=== PATIENT | male | born 1990 | race African-American/Black ===

== ENCOUNTER 2019-04-01 08:02 | Emergency (ER) | payer BC, SELFPAY ==
[2019-04-01 08:20] VITALS: BP 114/75; PULSE 70; RESP 16; TEMP 36.5; O2SAT 100
--- NOTE | 2019-04-01 08:24 | ED.NAVMDI ---
HPI - Nausea/Vomiting/Diarrhea General Chief complaint: Nausea/Vomiting/Diarrhea Stated complaint: Vomiting/Body Aches Time Seen by Provider: 04/01/19 08:26 Source: patient Mode of arrival: ambulatory History of Present Illness HPI Narrative: Patient presents with nausea vomiting and diarrhea that started 1 day ago. Patient reports generalized abdominal pain states he is able to tolerate liquids now. Patient denies any blood in his stools or emesis. Patient states he is a normally healthy individual. Patient also requests a note for work. MD elicited complaint: nausea, vomiting and diarrhea Related Data Home Medications Medication Instructions Recorded Confirmed hydrocodone-acetaminophen 1 tablet PO Q6H PRN 04/01/19 04/01/19 Allergies Allergy/AdvReac Type Severity Reaction Status Date / Time phenol Allergy Unknown Swelling Verified 04/01/19 08:29 tramadol Allergy Unknown Unknown Verified 04/01/19 08:29 Review of Systems Review of Systems: Narrative: CONSTITUTIONAL: Denies fever, chills, or sweats. EYES: Denies visual changes, redness, or discharge. ENT: Denies rhinorrhea, congestion, sore throat, or otalgia. CARDIOVASCULAR: Denies chest pain, palpitations, or edema. RESPIRATORY: Denies cough or dyspnea. GASTROINTESTINAL: Denies abdominal pain, nausea, vomiting, or diarrhea. GENITOURINARY: Denies dysuria or hematuria. SKIN: Denies rash or itching. MUSCULOSKELETAL: Denies back pain, joint pain, or myalgia. NEUROLOGIC: Denies headache, numbness, or weakness. PSYCHIATRIC: Denies anxiety or depression. All systems reviewed & are unremarkable except as noted in HPI and below Constitutional: Constitutional: Reports as per HPI PMFSH Comments At time of signature, agree with nursing past medical, surgical, social and family history. There is no relevant family history pertinent to the presenting complaint Exam Narrative: Exam Narrative: GENERAL: Well-appearing, well-nourished, and in no acute distress. HEAD: Normocephalic, atraumatic. EYES: PERRLA and EOMI. ENT: Nares clear, no rhinorrhea or epistaxis. Mucous membranes moist. NECK: Supple. CHEST: Clear to auscultation. No respiratory distress. HEART: Regular rate and rhythm. No murmur heard. Normal peripheral pulses. ABDOMEN: Soft, nontender, nondistended, normal active bowel sounds. EXTREMITIES: Normal range of motion. No edema. SKIN: Warm, dry, no rash. NEURO: No focal deficits. Alert and oriented x3. [place] Coma Scale Eye Opening: Spontaneous 4 [place] Coma Scale Motor: Obeys Commands 6 Kendrick Coma Scale Verbal: Oriented 5 [place] Coma Scale Total 15 Course Vital Signs Vital signs: Vital Signs Temperature 36.5 C 04/01/19 08:20 Pulse Rate 70 04/01/19 08:20 Respiratory Rate 16 04/01/19 08:20 Blood Pressure 114/75 04/01/19 08:20 Pulse Oximetry 100 04/01/19 08:20 Temperature 36.5 C 04/01/19 08:20 Pulse Rate 70 04/01/19 08:20 Respiratory Rate 16 04/01/19 08:20 Blood Pressure 114/75 04/01/19 08:20 Pulse Oximetry 100 04/01/19 08:20 MDM - Nausea/Vomiting/Diarrhea Differential Diagnosis Differential diagnosis: Likely gastroenteritis, clostridium difficile infection, drug-induced nausea and vomiting and dehydration Critical Care Time Critical Care Time Critical Care Time: No Discharge Plan Discharge Clinical Impression: Gastroenteritis Diarrhea Qualifiers: Diarrhea type: unspecified type Qualified Code(s): R19.7 - Diarrhea, unspecified Nausea & vomiting Qualifiers: Vomiting type: unspecified Vomiting Intractability: unspecified Qualified Code(s): R11.2 - Nausea with vomiting, unspecified Patient Disposition: Home, Self-Care Condition: Stable Instructions: Antibiotic Form Additional Instructions: Clear liquids for the next 8-10 hours, then advance to a bland diet as tolerated A bland diet can consist of--BRAT diet which is bananas, rice, applesauce, and toast Avoid fried, greasy, fatty, fried f
== END 2019-04-01 08:45 | disposition home or self-care (01) ==
PROVIDERS: Emergency Provider Nurse Practitioner Family
DX: K52.9 Noninfective gastroenteritis and colitis, unspecified (principal)
CPT/HCPCS: 99213; G0463

== ENCOUNTER 2024-03-30 16:38 | Emergency (ER) | payer BC, SELFPAY ==
--- NOTE | ~2024-03-30 | XR_ITS ---
EXAMINATION: XR chest 2V Exam Date/Time: 03/30/2024 17:15 [facility] HISTORY: cp Comparison: 03/12/2016. RESULT: Lines, tubes, and devices: None. Lungs and pleura: Clear. Cardiomediastinal silhouette: Stable. Other: No acute osseous or upper abdominal finding. IMPRESSION: No acute cardiopulmonary process. Reviewed, dictated and finalized at location [facility]
--- OUTSIDE RECORDS SUMMARY | 2024-03-30 16:42 | XMS_ITS | Referral Summary ---
Author Organization [facility] Address [address] [place] [address] Care Team Providers Care Horse Doctor Name Role Phone Ashwini Grace MD Primary Care Provide r Elmer Luna MD Unavailable [phone] Allergies Active Allergy Reactions Criticality Noted Date Comments Phenol-Glycerin Swelling Medium 05/13/2018 Medications HYDROcodone-acet aminophen (NORCO) 5-325 mg per tabletIndication s:Pain Take 1 tablet by mouth every 6 (six) hours as needed for pain 12 tablet 06/25/2018 Active azithromycin (ZITHROMAX) 250 mg tablet TK 2 TS PO QD FOR 1 DAY THEN TK 1 T PO D 07/16/2019 Active HYDROcodone-acet aminophen (NORCO) 5-325 mg per tablet Take 1 tablet by mouth every 6 (six) hours 08/13/2022 Active Active Problems Problem Noted Date Diagnosed Date 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 (08/30/2022 4:59 PM CDT): Longstanding, non tender , unchanged, without any evidence of hypogonadism Will check HCG, alpha fetoprotein and breast ultrasound Referral to plastic surgeon, Dr Peter Dentalgia 01/15/2018 Dental caries into pulp 01/15/2018 Immunizations Name Administration Dates Next Due Tdap 07/28/2019 Social History Tobacco Use Types Packs/Day Years Used Date Smoking Tobacco: Never Assessed Smokeless Tobacco: Never Alcohol Use Standard Drinks/Week Comments Not Currently 0 (1 standard drink = 0.6 oz pur e alcohol) AUDIT-C Answer Date Recorded Q1: How often do you have a drink containing alcohol? Never 08/30/2022 Q2: How many drinks containi ng alcohol do you have on a typical day when you are drinking? Patient does not drink Q3: How often do you have si x or more drinks on one occasion? 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 Gender Identity Not on file Sexual Orientation Not on file Last Filed Vital Signs Vital Sign Reading Time Taken Comments Blood Pressure 130/74 08/30/2022 2:49 PM CDT Pulse 80 08/30/2022 2:49 PM CDT Temperature 36.6 ??C (97.9 ??F) 12/04/2020 3:44 AM CD T Respiratory Rate 16 12/04/2020 6:19 AM CDT Oxygen Saturation 100% 12/04/2020 6:19 AM CDT Inhaled Oxygen Concentration - - Weight 101.4 kg (223 lb 9 oz) 08/30/2022 2:49 PM CDT Height 172.7 cm (5' 8 ) 08/30/2022 2:49 PM CDT Body Mass Index 33.99 08/30/2022 2:49 PM CDT Plan of Treatment Not on file Insurance [employer] OOS IDPA NCR ACCESS OOS NCR ACCESS OOS Care Teams Horse Doctor Relationship Specialty Start Date End Date Ashwini Grace MD [address] [place] [address] PCP - General Internal Medicine 12/04/20 Elmer Luna MD [address] [facility] [address] [place] [address] 12/04/20
--- OUTSIDE RECORDS SUMMARY | 2024-03-30 16:42 | XMS_ITS | Clinical Summary ---
Author Organization [facility] Address [address] [place] [id number] Care Team Providers Care Allergy And Immunology Specialist Name Role Phone Ashwini Grace MD Primary Care Provide r Elmer Luna MD Unavailable Allergies Active Allergy Reactions Criticality Noted Date [...] Name Administration Dates Next Due Tdap 07/28/2019 Surgical History Surgery Date Site/Laterality Comments WRIST SURGERY 05/26/2022 - 06/24/2022 Right Medical History Medical History Date Comments Lumbar back pain Family History Medical History Relation Name Comments Diabetes Father Hypertension Father No Known Problems Mother Relation Name Status Comments Father Alive Mother Alive Social History Tobacco Use Types Packs/Day Years [...] on file 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 Gender Identity Not on file Sexual Orientation Not on file Obstetrics History Last Filed Vital Signs Vital Sign Reading [...] 08/30/2022 2:49 PM CDT Plan of Treatment Health Maintenance Due Date Last Done Comments Depression Screening 1989 Hepatitis C Screening 1989 Varicella Vaccines (1 of 2 - 13+ 2-dose series) 2002 Hepatitis B Screening 04/30/2007 Regular Well Visit/Exam 18-64 04/30/2007 Covid-19 Vaccine ( - 2023-2 5 season) 2023 06/03/2020 Influenza Vaccine (#1) 2023 DTaP/Tdap/Td Vaccine (2 - Td or Tdap) 07/27/2029 07/28/2019 HPV Vaccines Aged Out No longer eligi ble based on patient's age to complete this topic Pneumococcal vaccine <65 Aged Out No longer eligible based on patient's age to complete this topic Insurance BLUE ACCESS OOS IDPA BLUE ACCESS OOS BLUE ACCESS OOS Care Teams Allergy And Immunology Specialist Relationship Specialty Start Date End Date Ashwini Grace MD [address] [place] [address] PCP - General Internal Medicine 12/04/20 Elmer Luna MD [address] [place] [address] 12/04/20
--- OUTSIDE RECORDS SUMMARY | 2024-03-30 16:42 | XMS_ITS | CONTINUITY OF CARE DOCUMENT ---
Author Name ana edureina Address Unknown Organization [facility] Address [address] [place] [address] Phone [phone] Care Team Providers Care Garnett Feeder Name Role Phone Nacho Brice MD Unavailable ELIZABETH LAUGHLIN MD Unavailable [phone] ELIZABETH LAUGHLIN MD Unavailable PROBLEMS Condition Status Date Provider Notes Cardiology examination active Nacho Brice MD ENCOUNTERS Date Type Provider Location Encounter Diag nosis - In-person encounter Office Visit Nacho Brice MD [place] [facility] Cardiology examination VITAL SIGNS Date Observation Value Provider Body Mass Index (Ratio) 26.70 kg/m2 Vince Brice MD blood pressure, cuff size regular Yaron Morillo blood pressure, diastolic 88 mm[Hg] Yaron Morillo blood pressure, systolic 128 mm[Hg] Jim Morillo oxygen saturation, oximetry 97 % Maty Morillo pulse rate 71 /min Maty Morillo weight E&M 146 [lb_av] Maty Morillo height E&M 62 [in_i] Maty Morillo respiratory rate E&M 12 /min Maty Morillo HISTORY OF MEDICATION USE Medication Status Instructions Dates Provider Indications Com ments atorvastatin tablet 5 active Take 5mg TID Maty Morillo lisinopril 5 mg tablet active Take 1 tablet by mouth once daily Maty Morillo INSURANCE PROVIDERS Payer name Policy type / Coverage type [place] red republican ID [facility] Blue [facility] [id number] ADVANCE DIRECTIVES Name Date DISCUSSED - NO DECISION MADE HISTORY OF PROCEDURES Procedure Date Procedure Name Provider Procedure Notes S tatus EKG Nacho Brice MD complete d
[2024-03-30 16:46] VITALS: BP 141/83; PULSE 85; RESP 18; TEMP 36.4; O2SAT 100
--- NOTE | 2024-03-30 16:46 | ECG_ITS ---
Test Date: 2024-03-30 16:48:04 Measurements Intervals Agency Rate: 80 P: 45 ME: 193 QRS: 85 QRSD: 102 T: 30 QT: 359 QTc: 416 Interpretive Statements SINUS RHYTHM NORMAL ECG No previous ECG available for comparison Electronically Signed On 03-30-2024 19:19:14 TALENT ANALYST by Gama Harp D.O.
[2024-03-30 16:56] LABS: Basophils Absolute Auto 0.1 K/mm3 (0.0-0.1); Basophils Percent Auto 0.7 % (0.2-1.2); Eosinophils Absolute Auto 0.2 K/mm3 (0-0.3); Eosinophils Percent Auto 2.7 % (0-4.4); Hematocrit 46.1 % (42.0-52.0); Hemoglobin 15.3 g/dL (14.0-18.0); Immature Granulocyte Absolute 0.04 K/mm3 (0.00-0.031); Immature Granulocyte Percent A 0.6 % (0-0.5); Lymphocytes Absolute Auto 2.14 K/mm3 (0.9-3.2); Lymphocytes Percent Auto 31.7 % (18.3-44.2); Mean Corpuscular HGB Conc 33.2 g/dl (32-36); Mean Corpuscular Hemoglobin 30.5 pg (26-34); Mean Platelet Volume 9.8 fl (7.4-10.4); Monocytes Absolute Auto 0.5 K/mm3 (0.1-0.6); Neutrophils Absolute Auto 3.8 K/mm3 (1.3-6.7); Neutrophils Percent Auto 56.3 % (45.5-73.1); Platelet Count Result 311 k/mm3 (150-375); Red Blood Count 5.01 M/mm3 (4.6-6.20); White Blood Count 6.8 K/mm3 (4.5-10.0)
[2024-03-30 17:10] LABS: Alanine Aminotransferase 27 U/L (6-50); Albumin Level 4.3 g/dL (3.5-5.1); Alkaline Phosphatase 77 U/L (38-126); Anion Gap 10 mmol/L (4-12); Aspartate Amino Transferase 26 U/L (17-59); Bilirubin,Total 0.4 mg/dL (0.2-1.3); Blood Urea Nitrogen 12 mg/dL (9-20); Carbon Dioxide 25 mmol/L (22-30); Chloride 101 mmol/L (98-107); Estimated CRCL calculation 107 ml/min; Estimated Glomerular Filt Rate > 60; Glucose 120 mg/dL (65-110); Lipase 64 U/L (23-300); Potassium 3.8 mmol/L (3.4-5.0); Sodium 136 mmol/L (137-145)
[2024-03-30 17:16] LABS: INR 0.9; Partial Thromboplastin Time 28.5 Seconds (22.3-36.8); Prothrombin Time 12.9 Seconds (11.1-14.7)
[2024-03-30 17:22] LABS: Troponin I < 0.012 ng/mL (0.000-0.034)
--- NOTE | 2024-03-30 22:07 | PC.NURSE ---
customer service specialist called out for pt to be taken back to a room. Pt did not respond to call out. Pt walked about before being seen.
--- OUTSIDE RECORDS SUMMARY | 2024-03-30 22:46 | XMS_ITS | CONTINUITY OF CARE DOCUMENT ---
Author Name ana edureina Address Unknown Organization [facility] Address [address] [place] [address] Phone [phone] Care Team Providers Care Veneer Measurer Name Role Phone Nacho Brice MD Unavailable [phone] ELIZABETH LAUGHLIN MD Unavailable ELIZABETH LAUGHLIN MD Unavailable [phone] PROBLEMS Condition Status Date Provider Notes Cardiology examination active Nacho Brice MD ENCOUNTERS Date Type Provider Location Encounter Diag nosis - In-person encounter Office Visit Nacho Brice MD [place] [facility] Cardiology examination VITAL SIGNS Date Observation [...] Payer name Policy type / Coverage type [place] red democrat ID [facility] Blue [facility] [id number] ADVANCE DIRECTIVES Name Date DISCUSSED - NO DECISION MADE HISTORY OF PROCEDURES Procedure Date Procedure Name Provider Procedure Notes S tatus EKG Nacho Brice MD complete d
--- OUTSIDE RECORDS SUMMARY | 2024-03-30 22:47 | XMS_ITS | Data Portability ---
Author Organization [facility], Main Office Address [address] [place] [address] Assessment No assessment recorded. Plan of Treatment Reminders Order Date Submit Date Provider Last Modified By Organization Details Last Modified Time Details Appointments None recorded. Lab urinalysis , dipstick 2022 023 [email or web address] [facility] [place], [address] [place] [address], [address], [place], [address], 3 17:35:28 Referral None recorded. Procedures None recorded. Surgeries None recorded. Imaging None recorded. Medication Orders meloxicam 15 mg tablet 2023 024 [id number], [address] [place], [place], [id number], 4 11:36:30 Patient TargetsNo targets recorded. Patient Instructions Encounter Date Encounter Id Patient Instructions Last Modified By Organization Details Last Modified Time 02/07/2023 [id number] risk assessment* Not availabl e 02/07/2023 11:21:39 INFLUENZA VACCIN E Recommended today, but patient declined Ordered Pat ient will get at local pharmacy/health department TD/TDAP Recommended today, patient declined Ordered Pat ient will get at local pharmacy/health department COLORECTAL SCREENING Recommended today, but patient declined Ordered Col onoscopy declined. Cologuard ordered No screening necessary until age 45 DEPRESSION SCREENING Negative BMI Overweight continue your current weight loss efforts try to lose 5% of your body weight try to lose 10% of your body weight NUTRITION PHYSICAL ACTIVITY Need more activity VISION Ordered Recommended today ALCOHOL USE No alcohol use TOBACCO USE former smoker current tobacco use SEXUALLY ACTIVE GLUCOSE SCREENING LIPID SCREENING [email or web address] Not available 02/07/2023 11:12:53 Adult health examination risk assessment stable. Follow-up for what appears to be obstructive sleep apnea -obesity class two and chronic pain syndrome. Had blood work performed back in June which showed a cholesterol 174 HDL of 42 and LDL of 118. Blood sugar was 94. Liver enzymes and CBC all within normal limits. Overall is doing fine. Need to be set up for a least a home study for sleep apnea. Will likely need to have full study pending those results. Will continue on current Rx follow-up in approximately six months Portions of the record may have been created with voice recognition software. Occasional wrong-word or ? s ound-a-like? substitutions may have occurred due to the inherent limitations of voice recognition software. Read the chart carefully and recognize, using context, where substitutions have occurred. Amanuel overnight sleep study for probable obstructive sleep apnea [email or web address] Not available 02/07/2023 11:21:22 05/23/2023 [id number] Knee strain with possible internal damage. Obtain radiographic studies of the knee and set up with doctors due for further evaluation. Will place on some meloxicam 15 mg once daily. X-rays of the left knee Set up with Dr. Loza for evaluation. Keep Appt: Dai 08 15 2023 09:[address] [facility] [place] Portions of the record may have been created with voice recognition software. Occasional wrong-word or ? s ound-a-like? substitutions may have occurred due to the inherent limitations of voice recognition software. Read the chart carefully and recognize, using context, where substitutions have occurred. [email or web address] Not available 05/23/2023 11:36:37 08/22/2023 [id number] Injury to the le ft 5th digit metacarpal area. Radiographically negative. Will set up with plastics for further evaluation for possible potential tendon damage. Additional Orders and/or Directives: 1. Plastics referral to hand surgery for possible left 5th digit tendon damage Next Appointment: 6 Months Approximate Date: 02/18/2024 Portions of the record may have been created with voice recognition software. Occasional wrong-word or ? s ound-a-like? substitutions may have occurred due to the inherent limitations of voice recognition software. Read the chart carefully and recognize, using context, where substitutions have occurred. [email or web address] Not available 08/22/2023 12:16:22 Reason for Referral None Reported. Results Created Date Observation Date Name Description Value Unit Range Abnormal Flag Note LastModifiedBy Organization Detail LastModifiedTime 10/24/1910/23/2022 urina lysis , dipst ick Leukocytes (reference range: negative akilah/? ? ?l) Negati ve Not Available [address], [address], 10/23/2022 17:13:50 10/24/19 23 10/23/2022 urina lysis , dipst ick Nitrite (reference rage: negative mg/dl) negati ve Not Available [address], [address], 10/23/2022 17:13:50 10/24/19 23 10/23/2022 urina lysis , dipst ick Urobilinogen (reference range: 0.2-1 mg/dl) 0.2 Not Available [address], [address], 10/23/2022 17:13:50 10/24/19 23 10/23/2022 urina lysis , dipst ick Protein (reference range: negative mg/dl) Negati ve Not Available [address], [address], 10/23/2022 17:13:50 10/24/19 23 10/23/2022 urina lysis , dipst ick pH (reference range: 5-7) 7.0 Not Available [address], [address], 10/23/2022 17:13:50 10/24/19 23 10/23/2022 urina lysis , dipst ick Blood (reference range: negative Juan/? ? ?l) Negati ve Not Available [address], [address], 10/23/2022 17:13:50 10/24/19 23 10/23/2022 urina lysis , dipst ick Specific [place] (reference range: 1.005-1.030) 1.015 Not Available [address], [address], 10/23/2022 17:13:50 10/24/19 23 10/23/2022 urina lysis , dipst ick Ketone (reference range: negative mg/dl) Negati ve Not Available [address], [address], 10/23/2022 17:13:50 10/24/19 23 10/23/2022 urina lysis , dipst ick Bilirubin (reference range: negative mg/dl) Negati ve Not Available [address], [address], 10/23/2022 17:13:50 10/24/19 23 10/23/2022 urina lysis , dipst ick Glucose (reference range: negative mg/dl) Negati ve Not Available [address], [address], 10/23/2022 17:13:50 10/24/1910/23/2022 urina lysis , dipst ick Appearance Clear Not Available [address], [address], 10/23/2022 17:13:50 10/24/1910/23/2022 urina lysis , dipst ick Color Yellow Not Available [facility] [place] [address] [facility], [address], [place], [address], 10/23/2022 17:13:50 11/10/19 23 11/08/2022 MAMMO , diagn ostic , digit al, bilat eral No observ ation record ed. [email or web address] [place] [address] , [place], [address], 11/28/2022 15:23:54 06/18/19 24 06/17/2023 XR, hand [facility] [address] [place] [address] [phone] Patien t Name: INDRA HINKLE Access ion #: [id number] Sex: M : 1990 2 Dictat ed By: Tye Fuentes Attend ing Physic akira: RADHA LUNA CE Orderi Physic akira: RADHA LUNA CE Exam Date: 2023 13:17 PM Exam Name: XR HAND LT Admitt ing Diagno sis(es ): CLINIC AL INDICA TION: LEFT HAND PAIN TECHNI QUE: 4 radiog raphic views of the left hand were obtain ed. Compar foster: none FINDIN GS/ IMPRES LOCO: There is no eviden ce of acute fractu re or disloc ation. The visual ized joint space is well mainta ined. The alignm ent is anatom ical. There is no radiop aque foreig n body. Electr onical ly Signed by: Tye Fuentes at 2023 07:50: 09 AM Page [address] (Imaging) [address] [place], [address], 06/19/2023 06:50:35 03/20/19 25 03/20/2024 XR, ribs, unila teral [facility] [address] [place] [address] Patien t Name: INDRA HINKLE Access ion #: [id number] Sex: M : 1990 5 Dictat ed By: Krari cole Attend ing Physic akira: RADHA LUNA CE Orderi ng Physic akira: RADHA LUNA CE Exam Date: 2024 10:57 AM Exam Name: XR RIBS RT WO CHEST Admitt ing Diagno sis(es ): ACCESS ION #: [id number] EXAMIN ATION: XR RIBS RT WO CHEST INDICA TION: Pleuro dynia 33-yea 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 COMPAR FOSTER: None TECHNI QUE: 3 views of the right ribs were perfor med. FINDIN GS: See below IMPRES LOCO: No acute displa pilar fractu res are identi fied about the right ribs or clavic le. 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 COMPAR FOSTER: XR CHEST 2V on DOS: 09/30/20 TECHNI QUE: PA and latera l views of the chest were perfor med. FINDIN GS: No pneumo thorax , pulmon holland edema, or consol idativ e infilt rates. The heart is enlarg ed. No fractu res are identi fied about the bony thorax . IMPRES LOCO: Cardio megaly withou t eviden ce of acute intrat horaci c proces s. Electr onical ly Signed by: Karri cole at 2024 12:07: 14 PM Page 1 [email or web address] [facility] (Imaging) [address] [place], [address], 03/20/2024 13:26:41 Result Notes None recorded. Problems Name Problem SNOMED Code Status Onset Date Resolution Date Notes Provider Name and Address Organization Details Recorded Time Renewal of prescripti on Active 2021 Not Available [facility] 3 10:47:02 Paronychia of toe of left foot 5125375426632 9100 Active 2019 Not Available [facility] 3 10:47:02 Glenoid labrum tear 331833102 Active 2021 Not Available [facility] 3 10:47:03 Low back pain 059557177 Active Not Available [facility] 3 10:47:03 Finding of body mass index 525926609 Active 2021 Not Available [facility] 3 10:47:03 Chronic pain syndrome 617767714 Active 2017 Not Available [facility] 3 10:47:03 Migraine 62865001 Active Not Available [facility] 3 10:47:03 Rotator cuff syndrome 6381841 Active Not Available [facility] 3 10:47:03 Obesity 352380290 Active 2022 Elmer Luna MD [address], [facility] [address], [place], [address] , [facility] [facility] 3 12:10:24 Gynecomast ia 0328341 Active 2022 Elmer Luna MD [address], [address], [place], [address] , [facility] 3 10:51:55 Obese class II 8470674114325 05 Active 2022 Elmer Luna MD [address], [address], [place], [address] , [facility] 3 10:53:15 Male sterility 60842703 Active 2022 Blu Menchaca MD [address], [address], [place], [address] , [facility] 3 16:19:02 Dysuria 08821561 Active 2022 Leatha Telles MA null, [facility] 3 17:20:09 Obstructiv e sleep apnea syndrome 71239241 Active 2022 Elmer Luna MD [address], [address], [place], [address] , [facility] 3 11:16:04 Pain of left knee joint 6000312476282 07 Active 2023 Elmer Luna MD [address], [address], [place], [address] , [facility] 4 11:32:07 Pain of left hand 4176500359222 03 Active 2023 Analilia Campbell CMA null, [facility] 4 12:24:28 Palpitatio ns 12618564 Active 2023 Analilia Campbell CMA null, [facility] 4 16:42:50 Acute pharyngiti s 135326327 Active 2023 Elmer Luna MD [address], [address], [place], [address] , [facility] 4 11:43:17 Acute sinusitis 94187755 Active 2023 Elmer Luna MD [address], [address], [place], [address] , [facility] 4 15:13:37 Rib pain 241738230 Active 2024 Analilia Adrian [employer] null, [facility] 5 13:03:11 Cardiomega ly 5281644 Active 2024 Analilia Adrian [employer]NA[employer] null, [facility] 5 16:41:42 Problem Notes None recorded. Procedures Surgical History Date Name Laterality Status Provider Name and Address Organization Details Recorded Time 09/04/2022 Vasectomy completed Blu Menchaca MD [address] [facility], [address], [place], [address], [facility] 09/04/2022 16:18:14 Imaging Results Imaging Date Name Status LastModified by Organiz ation Details LastModified Time 11/08/2022 MAMMO, diagnostic, digital, bilateral completed [address] , [place], [address], 11/28/2022 15:23:54 06/17/2023 XR, hand completed [address] (Imaging) [address] [place], [address], 06/19/2023 06:50:35 03/20/2024 XR, ribs, unilateral completed [address] (Imaging) [address] [place], [address], 03/20/2024 13:26:01 03/20/2024 XR, chest, 2 view completed [address] (Imaging) [address] [place], [address], 03/20/2024 13:26:41 Procedure Notes None recorded. Medical Equipment None Reported. Allergies Allergen ID Allergen Name Allergen Category Reaction Reaction Severity Criticality Documentation Date Start Date Code Code System Note Provider Name and Address Organization Details Recorded Time 76229 honey bee venom environme nt hives Not available Not available 04/25/2022 26989 7 RxNorm Not Available [facility] 3 10:52:08 60784 Topamax medicatio n angioedem a Not available Not available 04/25/2022 21111 3 RxNorm Not Available [facility] 3 10:52:08 87201 benzocain e / menthol medicatio n Not available Not available Not available 04/25/2022 92550 6 RxNorm Airwa y swell ing Not Available [facility] 3 10:52:08 53365 Ultram medicatio n angioedem a Not available Not available 04/25/2022 03137 6 RxNorm Not Available [facility] 3 10:52:08 Medications Name Sig Start Date Stop Date Status Note LastModified by Organization Details LastModified Time cyclobenzap rine 10 mg tablet Take 1 tablet three times daily 05/10 completed Not Available Not Available Not Available amoxicillin 500 mg capsule Take 1 capsule 3 times a day by oral route for 10 days. active Not Available Not Available No t Available Topamax 200 mg tablet Take 1 tablet twice a day by oral route. 05/10 completed Not Available Not Available Not Available clindamycin HCl 300 mg capsule TK 1 C PO Q 6 H 04/07 completed Not Available Not Available Not Available azithromyci n 250 mg tablet TAKE 2 TABLETS (500 MG) BY ORAL ROUTE ONCE DAILY FOR 1 DAY THEN 1 TABLET (250 MG) BY ORAL ROUTE ONCE DAILY FOR 4 DAYS active Not Available Not Available No t Available benzonatate 200 mg capsule Take 1 capsule 3 times a day by oral route. 01/16 completed Not Available Not Available Not Available hydrocodone 5 mg-acetamin ophen 325 mg tablet TAKE 1 TABLET BY MOUTH EVERY 6 HOURS NEEDED active Not Available Not Available No t Available meloxicam 15 mg tablet Take 1 tablet every day by oral route. active Not Available Not Available No t Available ondansetron HCl 4 mg tablet 04/07 completed Not Available Not Available Not Available prednisone 20 mg tablet 04/07 completed Not Available Not Available Not Available topiramate 25 mg tablet TAKE 1 TABLET BY MOUTH TWICE DAILY 08/01 completed Not Available Not Available Not Available ciprofloxac in 500 mg tablet TK 1 T PO BID FOR 10 DAYS 04/07 completed Not Available Not Available Not Available amoxicillin 500 mg tablet active Not Available Not Available Not Available ondansetron 8 mg disintegrat ing tablet 10/26 completed Not Available Not Available Not Available hydrocodone 7.5 mg-acetamin ophen 325 mg tablet TAKE 1 TABLET BY MOUTH EVERY 6 HOURS active Not Available Not Available No t Available oxycodone-a cetaminophe n 7.5 mg-325 mg tablet TAKE 1 TABLET BY MOUTH EVERY 6 HOURS active Not Available Not Available No t Available Valium 10 mg tablet take one pill one hour before vasectomy 10/23 completed Not Available Not Available Not Available methylpredn isolone 4 mg tablets in a dose pack Take by oral route as per package insert active Not Available Not Available No t Available Vitals Date Recorded Body height Provider Name an d Address Organization Details Last Updated DateTime 09/04/2022 172.72 cm Steven Alvarez [employer] [facility] [employer] [facility] 09/04/2022 15:39:44 Date Recorded Heart rate Body temperature Body mass index (BMI) Body weight Oxygen saturation Oxygen saturation in Arterial blood by Pulse oximetry Systolic blood pressure Diastolic blood pressure Provider Name and Address Organization Details Last Updated DateTime 3 99 /min 98.2 [degF] 33.8 kg/m2 960526. 51 g 98 % 98 % 120 mm[Hg] 79 mm[Hg] Leatha Telles MA [facility] [employer] [facility] 3 15:45:10 Date Recorded Body height Provider Name an d Address Organization Details Last Updated DateTime 10/23/2022 172.72 cm Steven Alvarez [employer] [facility] [employer] [facility] 10/23/2022 17:09:14 Date Recorded Heart rate Body temperature Body mass index (BMI) Body weight Oxygen saturation Oxygen saturation in Arterial blood by Pulse oximetry Systolic blood pressure Diastolic blood pressure Provider Name and Address Organization Details Last Updated DateTime 3 82 /min 98.1 [degF] 35 kg/m2 638617. 25 g 97 % 97 % 118 mm[Hg] 91 mm[Hg] Leatha Telles MA [facility] [employer] [facility] 3 17:19:45 Date Recorded Body height Body mass index (BMI) Body weight Heart rate Body temperature Oxygen saturation Oxygen saturation in Arterial blood by Pulse oximetry Systolic blood pressure Diastolic blood pressure Provider Name and Address Organization Details Last Updated DateTime 3 172.72 cm 35.4 kg/m2 421486. 02 g 82 /min 97 [degF] 97 % 97 % 122 mm[Hg] 68 mm[Hg] Alissa Nixon [employer] [facility] [employer] [facility] 3 11:02:36 Date Recorded Body height Body mass index (BMI) Body weight Heart rate Body temperature Oxygen saturation Oxygen saturation in Arterial blood by Pulse oximetry Systolic blood pressure Diastolic blood pressure Provider Name and Address Organization Details Last Updated DateTime 4 172.72 cm 35.3 kg/m2 982077. 43 g 95 /min 97 [degF] 97 % 97 % 122 mm[Hg] 78 mm[Hg] Alissa DerickFormerly [facility] [employer] [facility] [employer] [facility] 4 11:18:09 Date Recorded Body height Body mass index (BMI) Body weight Heart rate Body temperature Oxygen saturation Oxygen saturation in Arterial blood by Pulse oximetry Systolic blood pressure Diastolic blood pressure Provider Name and Address Organization Details Last Updated DateTime 4 172.72 cm 35 kg/m2 400531. 25 g 93 /min 97.2 [degF] 97 % 97 % 120 mm[Hg] 82 mm[Hg] ZEFERINO Dupree DE [employer] [facility] [employer] [facility] 4 12:03:42 Social History Question Answer Notes LastModified by Organizat ion Details LastModified Time What Was The Date Of Your Most Recent Tobacco Screening? 10/23/2022 [email or web address] Information not available 10/23/2022 Sex: Unknown Functional Status None recorded. Mental Status None recorded. Family History Nothing Reported Notes:Mother living 53 good health Father living 52 with HTN and Hyperglycemia Two brothers living and in good health One sister living and in good health Medical History Condition Response BLINDNESS N KIDNEY STONES N MRSA N CARPAL TUNNEL SYNDROME N OTHER # 1 N LUNG DISEASE/DISORDER N HISTORY OF DRUG ABUSE N COPD N RADIATION / CHEMOTHERAPY N Other # 2 N BLOOD DISEASES N SURGERY N SCHIZOPHRENIA N DEPRESSION (INCLUDING POST ) N BOWEL PROBLEMS N STROKE/TIA N ULCERS N BENIGN PROSTATIC HYPERPLASIA N OBESITY N GERD/NAUSEA N ANEURYSM N URINARY/BLADDER/KIDNEY PROBLEMS N CORONARY ARTERY DISEASE (CAD) N ADDICTION CONCERNS N USE OF BLOOD THINNERS N SKIN PROBLEMS N EMPHYSEMA N MUSCLE,JOINT OR BONE PROBLEMS N DVT N STOMACH ULCERS N BLOOD CLOTS N USE OF NSAIDS N CONCUSSION OR SPINAL TRAUMA N NEUROPATHY N AIDS/HIV N FRACTURES N HYPERTENSION N Metal allergy N ANXIETY DISORDER N BLOOD TRANSFUSION N ANEMIA/BLOOD DISORDER N BIPOLAR DISORDER N BRONCHITIS N OSTEOARTHRITIS N TUBERCULOSIS N FOOT PROBLEM N HEART VALVE DISORDERS N ALLERGIES/HAYFEVER N INFECTIOUS DISEASE N HEART ARRHYTHMIA N INSOMNIA N HIGH CHOLESTEROL / HYPERLIPIDEMIA N RHEUMATOID ARTHRITIS N HYPERTHYROIDISM N NEUROLOGICAL PROBLEMS N EDEMA N CHRONIC PAIN SYNDROME Y HYPOTHYROIDISM N CAROTID BLOCKAGE N BACK / NECK PROBLEMS Y HAVE YOU BEEN HOSPITALIZED OR SEEN IN [facility] IN THE PAST YEAR ? N BURSITIS N HERNIATED DISC N DIALYSIS N FIBROMYALGIA N OSTEOPOROSIS N ARTHRITIS N NO SIGNIFICANT PAST MEDICAL HISTORY N PERIPHERAL NEUROPATHY N DIABETES, TYPE N HEARTBURN / REFLUX N HEPATITIS / LIVER DISEASE N GOUT N ALZHEIMER'S DISEASE N SLEEP DISORDER N HERPES N HEADACHES/MIGRAINES Y SEIZURES/EPILEPSY N VASCULAR DISEASE N Blood Disorder N DIZZINESS N HEAD TRAUMA OR INJURY N HEART DISEASE/HEART PROBLEMS N MULTIPLE SCLEROSIS N CANCER: SPECIFY N CARDIAC ARRHYTHMIA N ANESTHESIA COMPLICATIONS N ATRIAL FIBRILLATION N AUTOIMMUNE DISEASE N Immunizations Vaccine Type Date Status Note Provider Nam e and Address Organization Details Recorded Time SARS-COV-2 (COVID-19) vaccine, UNSPECIFIED completed Not Available [facility] 04/25/2022 10:51:55 Past Encounters Encounter ID Performer Location Encounter Start Date Encounter Closed Date Diagnosis/Indication Diagnosis SNOMED-CT Code Diagnosis ICD10 Code Diagnosis Note [id number] [facility] [address] [address] 05/26/2020 00:00:00 05/26/2020 11:05:14 [id number] [facility] Internal Med Razia toussaint [address] [facility] [place] [address] 07/05/2020 00:00:00 07/05/2020 11:32:48 [id number] [facility] [address] [address] 10/06/2020 00:00:00 10/26/2020 12:09:33 [id number] [facility] [address] [facility] [address] [place] [address] 11/15/2020 00:00:00 11/15/2020 10:53:39 [id number] [facility] [place] [address] [place] [address] 12/14/2020 00:00:00 12/14/2020 14:32:17 [id number] [facility] [place] [address] [place] [address] 12/27/2020 00:00:00 12/27/2020 12:44:41 [id number] [facility] [address] [address] 01/16/2021 00:00:00 01/16/2021 11:58:11 [id number] [facility] [place] [address] [place] [address] 01/17/2021 00:00:00 01/17/2021 12:36:50 [id number] [facility] [place] [address] [place] [address] 03/08/2021 00:00:00 03/08/2021 15:11:45 [id number] [facility] [place] [address] [place] [address] 05/10/2021 00:00:00 05/10/2021 16:31:17 [id number] [facility] [address] [address] 10/26/2021 00:00:00 10/26/2021 12:12:21 [id number] Elmer Luna MD [facility] [address] [address] 04/25/2022 11:52:55 04/25/2022 12:21:03 Chronic pain syndrome 553042129 G89.4 Obesity 652143754 E66.9 Long-term drug therapy 876122140 Z79.891 [id number] Elmer Luna MD [facility] [address] [address] 06/28/2022 10:27:51 06/28/2022 11:10:54 Gynecomastia 8292895 N62 Chronic pain syndrome 37 9148415 G89.4 Obese class II 564236434 1 42528 E66.9 Screening for cardiovascular system disease 865677542 Z13.6 [id number] Amaury Samuels MD [facility] [address] [address] 07/26/2022 10:54:57 07/26/2022 11:18:54 Male sterilization 617967783 Z30.2 Discussed procedure, risks and alternativ es [id number] Blu Menchaca MD [facility] [address] [address] 09/04/2022 15:22:40 09/04/2022 16:22:56 Male sterility 73165080 N46.9 Reminded to use control until confirm steril by semen analysis x 2 [id number] Blu Menchaca MD [facility] Urology [address] [address] 10/23/2022 16:51:29 10/23/2022 17:34:02 Dysuria [id number] R30.0 Negative ua, suggested he avoid caffeine. [id number] Elmer Luna MD [facility] Internal Med [facility] [address] [address] 02/07/2023 10:49:27 02/07/2023 11:26:22 Adult health examination [id number] Z00.00 Depression screening 171 [id number] Z13.31 Obese class II [id number] 1 86919 E66.9 Chronic pain syndrome 37 [id number] G89.4 Obstructiv e sleep apnea syndrome [id number] G47.33 [id number] Elmer Luna MD S[facility] Internal Med [facility] [address] [address] 05/23/2023 11:14:32 05/23/2023 11:38:20 Pain of left knee joint [id number] 29919 M25.890 [id number] Elmer Luna MD S_[facility] Internal Med [facility] [address] [facility] , [place] [address] 08/22/2023 11:58:55 08/22/2023 12:18:35 Pain of left hand [id number] 54141 M79.642 Health Concerns Section Related Observation LastModified by Organization Detai ls LastModified Time None Recorded Concern Status LastModified by Organization Details LastModified Time None Recorded Advance Directives Directive None Recorded Payers Encounter Date Sequence Insurance Name Policy Number Policy Archer Covered Member ID Archer Member ID Guarantor Name 09/04/2022 1 [place] [id number] Donovan Hinkle [id number] Donovan Dunne Hinkle Jr 10/23/2022 1 [place] [id number] Donovan Hinkle [id number] Donovan L Hinkle Jr 02/07/2023 1 [place] [id number] Donovan Hinkle [id number] Donovan L Hinkle Jr 05/23/2023 1 [place] [id number] Donovan Hinkle [id number] 16 Donovantory Hinkle Jr 08/22/2023 1 [place] [id number] Donovan Hinkle [id number] Donovan Hinkle Jr Notes Date Note Type Note Provider Name and Address Organization Details Recorded Time 3 text/html 32 yo male for vasectomy consultation. He is with 6 children. No medical problems, genital surgery or bleeding problems.09/04/22PT reaffirms his desire for permanent sterilization. Blu Menchaca MD [address], [place], [address], [facility] 09/04/2022 16:19:43 3 text/html 32 yo male for vasectomy consultation. He is with 6 children. No medical problems, genital surgery or bleeding problems.09/04/22PT reaffirms his desire for permanent sterilization.10/23/22 comes back with some tingling on right side, no dysuria or hematuria. Blu Menchaca MD [address], [place], [address], [place] [facility] 10/23/2022 17:35:54 3 text/html Patient Name: Donovan Waddell Of Service: January ( 02.07.2023 ): 1990 Age: 32 There has been approximately a 3.5 lb weight loss since 06/28/2022. This represents approximately a 1.5% change in weight. Weight change attributable to lifestyle changes. Vital Signs:Blood Pressure: Sitting Rt. Arm 122/68Pulse: Sitting 82 /min and RegularRespiratory Rate: 12Height 68 in or 1.7 mWeight 233 lb or 105.7 kgBMI 35.4Temperature: 97 F or 36.1 CPulse Oximetry: 97 % at rest on no oxygen Chief Complaint: Addressed in HPI Problems or conditions discussed in the HPI were the only ones reviewed during the encounter.Only social and family history addressed in the HPI were reviewed during this encounter. Attendant(s): NoneConstitutional and Systemic Symptoms:none Medication Reconciliation: from medication list. History of Present Illness In for a well patient check up. Last well patient evaluation was approximately one year. No interval complaints of any new major medical problems. No hx of any chest pain, shortness of breath, nausea, vomiting, diarrhea or constitutional symptoms.PSA NAColonoscopy or Cologuard: not dueImmunizations Up To Date or refuses to takeNo Significant Change In Family HxFall Risk normalDepression Score: 0Hearing normalVisual normalReviewed Smoking and Drug HistoryReviewed Immunization HistoryInstructed on importance of weight on diabetes, heart and other diseases aggravated by obesity.Instructed on importance of weight on diabetes, heart and other diseases aggravated by obesity. #1. Possible Sleep Apnea: Has physical characteristics and sleeping habits possible consistent with sleep apnea. Has a narrow posterior pharynx. Snores: nightly. Feels extremely fatigued and like falling to sleep throughout the day. Dreaming: infrequencyEpworth Sleepiness ScaleSitting and ReadinWatching TV: 3Sitting Inactive in a Public Place: 2Passenger in a Car: 2Lying Down in Afternoon: 2Sitting and Talking to someone: 1Sitting quietly after lunch: 2In a car while stopped or drivinScore Interpretation: 10-15 Abnormally sleepySTOP-BANGSnores Loudly: yesTired or sleepy during daytime: yesObserved to stop breathing during sleep: yesPressure - HTN: noBMI > 35: yesAge > 50: noNeck Circumference > 15 inches: yesGender: Male: : yes #2. Chronic pain management for chronic generalized joint pain Since last examination no significant change since last examination Interval Testing: noneHas tried NSAIDS partial relief requiring additional medication. Pain Description: constant. Currently seeing or has seen in the past a Gas Meter Prover: No .Pain - Enjoyment of Life - General Activity ScalePain on Average: 5Enjoyment of Live: 4General Activity: 5Enjoyment of Life - General Activity Scale: 4Currently regimen consists of Hydrocodone Bitartrate as prescribed with no evidence of abuse or self prescribing. Current Average Morphine Milligram Approximate Equivalent: 20 mg approximated if taking full dosage daily. Recommend: NA.Benzodiazepines or other hypnotics: no.Alternative pain management modalities (acupuncture - behavior therapy- additional PT - SNRIs) have been discussed and have either been tried in the past or not acceptable alternatives to patient or not available in our location.Will kept medications the same.Urine Testing: not indicated and this time.Controlled substance database yes and no discrepancies or multiple prescribers noted. Pill counts when available have been acceptable. No other signs of any abuse.Patient reports condition is stable and is able to function with the medication. Denies any misuse or adverse effects.TREATMENT OBJECTIVE: Enhance ability to manage pain independently, improved function and sustain quality of life. Recommendations or alternative therapies and lifestyle changes are discussed on each visit. Has shown improvement inf functionality. Has been educated on the side effects,risks and any black box warnings. Has verbalized the dangers of some of the medications regarding driving and cooperating heavy machinery and have advised against this. #3. Hx of obesity. Currently Class 2 Obesity BMI 35-39.99. Has tried numerous dietary support and supplements with no benefit. Instructed on the health consequences of the obese status particularly cancer - diabetes and heart disease. Discussed new modalities of weight loss including GLP-1 medications that are used to treat diabetes. Potential candidate for bariatric surgery: No. Wishes to be evaluated by Dietary: Yes.Medication List Reviewed and Reconciled 02/07/2023Hydrocodone Bitartrate 325; 5 MG; MG TABLET One QidADRs List Reviewed 02/07/2023Hymenoptra Stings Hives But No Shortness Of Breath Or Airway ClosureChloraseptic Swelling Throat But No Airway ClosureUltram AngioedemaVaccination and [id number] Covid 19 [facility] & JohnsonSurgical HistoryRight Wrist SurgeryPreventative Testing Confirmed by Our Meyetar4011/09/2022 MAMMOGRAM ALBUMIN 4.2 G/DL NSocial HistorySmokes several cigarettes daily for 2-3 yearsDrinks sociallyWorks at [facility] HistoryMother living 55 good healthFather living 54 with HTN and HyperglycemiaTwo brothers living and in good healthOne sister living and in good health Elmer Luna MD [address] [facility] [address], [address], [facility] 02/07/2023 11:21:42 4 text/html Patient Name: Donovan Waddell Of Service: April ( 05.23.2023 ): 1990 Age: 33 Vital Signs:Blood Pressure: Sitting Rt. Arm 122/78Pulse: Sitting 95 /min and RegularRespiratory Rate: 12Height 68 in or 1.7 mWeight 232 lb or 105.2 kgBMI 35.3Pulse Oximetry: 97 % at rest on no oxygen Chief Complaint: Addressed in HPI Problems or conditions discussed in the HPI were the only ones reviewed during the encounter.Only social and family history addressed in the HPI were reviewed during this encounter. Attendant(s): NoneConstitutional and Systemic Symptoms:none Medication Reconciliation: from medication list. History of Present Illness #1. Pain left knee joint duration approximately 48-72 hours. Was playing football try to catch a football stepped in a hole foot got caught in the whole hyperextended the knee. He is complaining of generalized knee pain. There is some slight swelling over the suprapatellar area. There is full range of motion noted. There is no instability of the joint.: Active Medication ListHydrocodone Bitartrate 325; 5 MG; MG TABLET One Qid Adverse Drug Reactions ReviewedHymenoptra Stings Hives But No Shortness Of Breath Or Airway ClosureChloraseptic Swelling Throat But No Airway ClosureUltram Angioedema Vaccination and [id number] Covid 19 [facility] Qkloshn4030-45 Right Wrist Surgery Preventative Meokghs2411/09/2022 MAMMOGRAM ALBUMIN 4.2 G/DL N Social HistorySmokes several cigarettes daily for 2-3 yearsDrinks sociallyWorks at [facility] Family HistoryMother living 55 good healthFather living 54 with HTN and HyperglycemiaTwo brothers living and in good healthOne sister living and in good health Elmer Luna MD [address] [facility], [facility] [address], [place], [address], [place] [facility] 05/23/2023 11:36:56 4 text/html Patient Name: Donovan Hammerte Of Service: July ( 08.22.2023 ): 1990 Age: 33 There has been approximately a 2 lb weight loss since 05/23/2023. This represents approximately a .9% change in weight. Weight change attributable to lifestyle changes. Vital Signs:Blood Pressure: Sitting Rt. Arm 120/82Pulse: Sitting 93 /min and RegularRespiratory Rate: 12Height 68 in or 1.7 mWeight 230 lb or 104.3 kgBMI 35.0Temperature: 97.2 F or 36.2 CPulse Oximetry: 97 % at rest on no oxygen Chief Complaint: Addressed in HPI Problems or conditions discussed in the HPI were the only ones reviewed during the encounter.Only social and family history addressed in the HPI were reviewed during this encounter. Attendant(s): NoneConstitutional and Systemic Symptoms:none Medication Reconciliation: from medication list. History of Present Illness #1. Pain discomfort left 5th digit. Apparently was injured when working with someone approximately two months ago. Still having persistent pain and discomfort with some movement difficulty as well as some laxity of the joint itself. May have suffered some form of tendon injury as well.: Active Medication ListHydrocodone Bitartrate 325; 5 MG; MG TABLET One Qid Adverse Drug Reactions ReviewedHymenoptra Stings Hives But No Shortness Of Breath Or Airway ClosureChloraseptic Swelling Throat But No Airway ClosureUltram Angioedema Vaccination and Hkpdjizggpkp2275-45 Covid 19 [facility] Lixgvhy5215-61 Right Wrist Surgery Preventative Kfwtscd7611/09/2022 MAMMOGRAM ALBUMIN 4.2 G/DL N Social HistorySmokes several cigarettes daily for 2-3 yearsDrinks sociallyWorks at [facility] Family HistoryMother living 55 good healthFather living 54 with HTN and HyperglycemiaTwo brothers living and in good healthOne sister living and in good health Elmer Luna MD [address] [facility], [facility] [address], [place], [address], [facility] [employer] 08/22/2023 12:16:38
--- OUTSIDE RECORDS SUMMARY | 2024-03-30 22:47 | XMS_ITS | Referral Summary ---
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
--- OUTSIDE RECORDS SUMMARY | 2024-03-30 22:47 | XMS_ITS | Clinical Summary ---
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
== END 2024-03-30 22:52 | disposition left against medical advice (07) ==
LOC: ANHED 22:45
PROVIDERS: Emergency Provider Family Medicine
DX: R07.9 Chest pain, unspecified (principal)
CPT/HCPCS: 36415; 71046; 80053; 83690; 84484; 85025; 85610; 85730; 93005; 99199